=== PATIENT | female | born 1940 ===

== ENCOUNTER 2018-02-26 12:03 | Emergency (ER) | payer MEDICARE, OTHER ==
[~2018-02-26] VITALS: Ht 157.5 cm; Wt 100.0 kg
[~2018-02-26 12:03] MED LIST: ASPI-621 PO; ASPI325T17 PO; CELE200C PO; CETI10TA32 PO; CHOL100015 PO; CYAN25009 PO; DOCU-131 PO; HYDR-3245 PO; HYDR12.53 PO; IBUP-1221 PO; LEVO100T5 PO; LOVA20TA2 PO; METF500T17 PO; MULT-108 PO; NIAC500C8 PO; OMEG-172 PO; POTASSIUM PO; PRAM0.12 PO; PRAZ2CAP2 PO; PSEUDOEPHEDRINE PO; SODI30SP IH; VERA240C2 PO; [UNRECOGNIZED DRUG - OTHER] PO
[2018-02-26] MEDS ORDERED: KETOROLAC 30 MG/1 ML ONE (12:28)
[2018-02-26] MEDS ORDERED: SODIUM CHLORIDE FLUSH 10ML SYR IVF ONE (12:30)
[2018-02-26] MEDS ORDERED: KETOROLAC 30 MG/1 ML IVPush ONE (12:30)
[2018-02-26 12:52] LABS: ALANINE AMINOTRANSFERASE 37 U/L (12-78); ALBUMIN 3.4 g/dL (3.4-5.0); ANION GAP 8 mmol/L (5-15); CALCIUM 8.6 mg/dL (8.5-10.1); CHLORIDE 104 mmol/L (98-107); CREATININE 0.77 mg/dL (0.55-1.02)
[2018-02-26 12:57] LABS: ALKALINE PHOSPHATASE 45 U/L (45-117); BILIRUBIN,TOTAL 0.4 mg/dL (0.2-1.0); TOTAL PROTEIN 6.7 g/dL (6.4-8.2); TROPONIN I < 0.015 ng/mL (0.000-0.045)
[2018-02-26 12:59] LABS: BASOPHILS # (AUTO) 0.04 x10^3/uL (0-0.1); BASOPHILS % (AUTO) 1 % (0-1); EOSINOPHILS # (AUTO) 0.24 x10^3/uL (0-0.4); EOSINOPHILS % (AUTO) 3 % (1-7); LYMPHOCYTES # (AUTO) 1.78 x10^3/uL (1-3.4); LYMPHOCYTES % (AUTO) 22 % (22-44); MD NO; MEAN CORPUSCULAR HEMOGLOBIN 28.6 pg (27.0-34.8); MEAN CORPUSCULAR HGB CONC 33.7 g/dL (32.4-35.8); MEAN CORPUSCULAR VOLUME 84.8 fL (80-100); MEAN PLATELET VOLUME 10.5 fL (7.4-10.4); MONOCYTES # (AUTO) 0.43 x10^3/uL (0.2-0.8); MONOCYTES % (AUTO) 5 % (2-9); NEUTROPHILS # (AUTO) 5.52 x10^3/uL (1.8-6.8); NEUTROPHILS % (AUTO) 69 % (42-75); PLATELET COUNT 197 x10^3/uL (130-400); RED BLOOD COUNT 4.71 x10^6/uL (3.82-5.3); RED CELL DISTRIBUTION WIDTH 16.2 % (9.6-15.2)
[2018-02-26] MEDS ORDERED: INSU100V13 SUBD (13:38)
[2018-02-26] MEDS ORDERED: FLUTICASONE 0.05% NAS (13:38)
[2018-02-26] MEDS ORDERED: PRAV20TA2 PO (13:38)
[2018-02-26] MEDS ORDERED: PIOG15TA4 PO (13:38)
[2018-02-26] MEDS ORDERED: MAGN400T7 PO (13:38)
[2018-02-26] MEDS ORDERED: POTA10CA PO (13:38)
[2018-02-26 14:27] VITALS: BP 143/56
== END 2018-02-26 14:30 | disposition home or self-care (01) ==
LOC: ED 14:24
DX: J98.01 Acute bronchospasm (principal); R09.1 Pleurisy; R07.89 Other chest pain; I10 Essential (primary) hypertension; E11.9 Type 2 diabetes mellitus without complications
CPT/HCPCS: 36415; 71045; 76700; 80053; 83690; 84484; 85025; 93005; 96374; 99284; J1885

== ENCOUNTER 2019-05-20 11:11 | Emergency (ER) | payer MEDICARE, OTHER ==
[~2019-05-20] VITALS: Ht 157.5 cm; Wt 103.0 kg
[~2019-05-20 11:11] MED LIST changes: -ASPI-621 PO; +ASPI81TA45 PO; +FLUTICASONE 0.05% NAS; +HYDR12.517 PO; -HYDR12.53 PO; +INSU100V13 SUBD; +MAGN400T9 PO; +PIOG15TA69 PO; +POTA10CA PO; +PRAV20TA2 PO
[2019-05-20 11:35] VITALS: BP 139/58
[2019-05-20] MEDS ORDERED: DIAZEPAM 5 MG TABLET ONE (12:53)
[2019-05-20] MEDS ORDERED: KETOROLAC 30 MG/1 ML ONE (12:53)
[2019-05-20] MEDS ORDERED: KETOROLAC 30 MG/1 ML IM ONE ×2 (13:00)
[2019-05-20] MEDS ORDERED: DIAZEPAM 5 MG TABLET PO ONE (13:00)
--- NOTE | 2019-05-20 13:00 | NUR ---
AFTER MEDICATED FOR BACK PAIN TO XRAY VIA WC
--- NOTE | 2019-05-20 14:09 | NUR ---
Patient/Caregiver given discharge instructions and they have confirmed that they understand the instructions. Patient ambulatory with steady gait TO WHEELCHAIR.. PT LEFT WITH ALL PERSONAL BELONGINGS.
== END 2019-05-20 14:12 | disposition home or self-care (01) ==
LOC: ED 14:06
DX: S39.012A Strain of muscle, fascia and tendon of lower back, initial encounter (principal); M51.36 Other intervertebral disc degeneration, lumbar region; I10 Essential (primary) hypertension; E11.9 Type 2 diabetes mellitus without complications; X58.XXXA Exposure to other specified factors, initial encounter; Y93.89 Activity, other specified; Y92.89 Other specified places as the place of occurrence of the external cause; Y99.8 Other external cause status
CPT/HCPCS: 72110; 96372; 99283; J1885